=== PATIENT | female | born 1960 | race Caucasian/White ===

== ENCOUNTER → 2017-11-12 | Outpatient (CLI) | payer BC ==
[~2017-11-12] MED LIST: CETI10TA10 PO; CETICHW4 PO; CHOL100040 PO; CHOL1TAB42 PO; CYCL5TAB PO
--- NOTE | 2017-11-12 11:49 | DIAGNOSTIC IMAGING REPORT ---
THYROID ULTRASONOGRAPHY CLINICAL HISTORY: ENLARGED THYROID GLAND COMPARISON STUDY: March 2013 FINDINGS: The right of the thyroid measures 47 x 14 x 15 mm. Left lobe of thyroid measures 44 x 15 x 14 mm. Both lobes are heterogeneous in echotexture with tiny nodules. The dominant nodule in the right is a mid to lower pole circumscribed hypoechoic 4 x 3 x 4 mm nodule. The dominant nodule on the left is a circumscribed wider than tall hypoechoic 6 x 3 x 4 mm nodule. These nodules remain similar to the prior March 2013 study. IMPRESSION: Stable multinodular thyroid gland. No suspicious nodules are identified. Electronically signed by: Sharath De Los Santos M.D. 11/12/2017 11:48 AM Dictated Date/Time: 11/12/2017 11:45 AM
== END | disposition home or self-care (01) ==
LOC: C.ULTR 11:19
PROVIDERS: ATTEND Nurse Practitioner
DX: E04.9 Nontoxic goiter, unspecified (principal)

== ENCOUNTER → 2017-12-03 | Day surgery (SDC) | payer BC ==
[2017-11-20 13:04] VITALS: Ht 167.6 cm; Wt 51.8 kg
[~2017-12-03] VITALS: Ht 167.6 cm; Wt 51.8 kg
[~2017-12-03] MED LIST changes: -CETICHW4 PO; -CHOL100040 PO; -CYCL5TAB PO; +LIDOCAINE HCL 2% 2 ML VIAL (20MG/ML) ONE; +PROPOFOL IV EMULSION 10 MG/ML 20 ML VIAL IV ONE
--- NOTE | 2017-12-03 14:36 | Endo History and Physical ---
History & Physical Date of Service: Dec 03, 2017. Chief Complaint: History of polyps Referring Physician: Sona Avila History of Present Illness screening colon Past Surgical History Hx Cardiac Surgery: No Hx Internal Defibrillator: No Hx Pacemaker: No Hx Abdominal Surgery: Yes (HYSTERECTOMY) Hx of Implantable Prosthesis: No Hx Post-Op Nausea and Vomiting: No Hx Cancer Surgery: No Hx Thoracic Surgery: No Hx Orthopedic: Yes (RT/LEFT KNEE ARTHROSCOPY) Hx Urinary Tract Surgery: No Family History Polyp Social History Smoking Status: Current Every Day Smoker Hx Substance Use: No Hx Alcohol Use: Yes (OCCASIONALLY) Allergies Coded Allergies: Latex1 -Allergic Contact Dermititis (Verified Allergy, Mild, RASH, 11/20/17 ) Gold (Verified Allergy, Unknown, RASH, 11/20/17) Neomycin (Verified Adverse Reaction, Unknown, rash, 11/20/17) Uncoded Allergies: RUBBER (Allergy, Unknown, RASH, 11/20/17) Current Medications Reported Home Medications Medications Dose Route/Sig Max Daily Dose Days Date Category Vitamin D (Cholecalciferol) 5,000 Unit Tab 2 Tab PO QAM 11/20/17 Reported Zyrtec (Cetirizine Hcl) 10 Mg Tab 10 Mg PO QAM 11/20/17 Reported Vital Signs Weight (Kilograms): 51.82 Height (Feet): 5 Height (Inches): 6 Date Time Temp Pulse Resp B/P (MAP) Pulse Ox O2 Delivery O2 Flow Rate FiO2 12/03/17 13:58 37.3 78 16 141/83 (102) 99 Room Air Physical Exam General Appearance: WD/WN, no apparent distress Respiratory/Chest: Auscultation: breath sounds normal Cardiovascular: Heart Auscultation: RRR Abdomen: Bowel Sounds: normal Inspection & Palpation: soft, non-distended, no tenderness, guarding & rebound Assessment and Plan colon for screening
--- NOTE | 2017-12-03 15:36 | GI REPORT ---
Procedure Date: 12/03/2017 2:49 PM Procedure: Colonoscopy Indications: Personal history of colonic polyps Medicines: Propofol per Anesthesia Complications: No immediate complications. Estimated blood loss: Minimal. Estimated Blood Loss: Estimated blood loss was minimal. Procedure: Pre-Anesthesia Assessment: - Prior to the procedure, a History and Physical was performed, and patient medications and allergies were reviewed. The patient's tolerance of previous anesthesia was also reviewed. The risks and benefits of the procedure and the sedation options and risks were discussed with the patient. All questions were answered, and informed consent was obtained. Prior Anticoagulants: The patient has taken no previous anticoagulant or antiplatelet agents. ASA Grade Assessment: II - A patient with mild systemic disease. After reviewing the risks and benefits, the patient was deemed in satisfactory condition to undergo the procedure. After I obtained informed consent, the scope was passed under direct vision. Throughout the procedure, the patient's blood pressure, pulse, and oxygen saturations were monitored continuously. The scope was introduced through the anus and advanced to the cecum, identified by appendiceal orifice and ileocecal valve. The colonoscopy was performed without difficulty. The patient tolerated the procedure well. The quality of the bowel preparation was good. Findings: Two sessile polyps were found in the rectum. The polyps were 3 mm in size. These polyps were removed with a cold biopsy forceps. Resection and retrieval were complete. Estimated blood loss was minimal. Verification of patient identification for the specimen was done by the physician and orthopedic technician using the patient's name and medical record number. Two sessile polyps were found in the rectum. The polyps were 5 to 7 mm in size. These polyps were removed with a cold snare. Resection and retrieval were complete. Estimated blood loss was minimal. Verification of patient identification for the specimen was done by the physician and orthopedic technician using the patient's name and medical record number. A 7 mm polyp was found in the transverse colon. The polyp was sessile. The polyp was removed with a hot snare. Resection and retrieval were complete. Estimated blood loss was minimal. Verification of patient identification for the specimen was done by the physician and orthopedic technician using the patient's name and medical record number. The retroflexed view of the distal rectum and anal verge was normal and showed no anal or rectal abnormalities. The exam was otherwise without abnormality. Impression: - Two 3 mm polyps in the rectum, removed with a cold biopsy forceps. Resected and retrieved. - Two 5 to 7 mm polyps in the rectum, removed with a cold snare. Resected and retrieved. - One 7 mm polyp in the transverse colon, removed with a hot snare. Resected and retrieved. - The distal rectum and anal verge are normal on retroflexion view. - The examination was otherwise normal. Recommendation: - Discharge patient to home (ambulatory). - Resume regular diet. - Continue present medications. - Await pathology results. - Return to referring physician as previously scheduled. MD Walter Gonzáles MD 12/03/2017 3:36:07 PM This report has been signed electronically. Note Initiated On: 12/03/2017 2:49 PM I attest to the content of the Intraoperative Record and orders documented therein, exceptions below
--- NOTE | 2017-12-03 15:39 | Anesthesiology Progress Note ---
Anesthesia Post Op Note Date & Time Dec 03, 2017 at 15:39 Vital Signs Pain Intensity: 0 Vital Signs Past 12 Hours Date Time Temp Pulse Resp B/P (MAP) Pulse Ox O2 Delivery O2 Flow Rate FiO2 12/03/17 15:30 81 16 127/52 (77) 100 Room Air 12/03/17 13:58 37.3 78 16 141/83 (102) 99 Room Air Notes Mental Status: alert / awake / arousable, participated in evaluation Pt Amnestic to Procedure: Yes Nausea / Vomiting: adequately controlled Pain: adequately controlled Airway Patency, RR, SpO2: stable & adequate BP & HR: stable & adequate Hydration State: stable & adequate Anesthetic Complications: no major complications apparent
--- NOTE | 2017-12-03 15:43 | Discharge Instructions ---
Endoscopy Patient Instructions Date / Procedure(s) Performed Dec 03, 2017. Colonoscopy Allergy Information Coded Allergies: Latex1 -Allergic Contact Dermititis (Verified Allergy, Mild, RASH, 11/20/17 ) Gold (Verified Allergy, Unknown, RASH, 11/20/17) Neomycin (Verified Adverse Reaction, Unknown, rash, 11/20/17) Uncoded Allergies: RUBBER (Allergy, Unknown, RASH, 11/20/17) Discharge Date / Findings Dec 03, 2017. polyps Medication Instructions Restart Stopped Medication(s): Reported Home Medications Medications Dose Route/Sig Max Daily Dose Days Date Category Vitamin D (Cholecalciferol) 5,000 Unit Tab 2 Tab PO QAM 11/20/17 Reported Zyrtec (Cetirizine Hcl) 10 Mg Tab 10 Mg PO QAM 11/20/17 Reported Reported Home Medications Medications Dose Route/Sig Max Daily Dose Days Date Category Vitamin D (Cholecalciferol) 5,000 Unit Tab 2 Tab PO QAM 11/20/17 Reported Zyrtec (Cetirizine Hcl) 10 Mg Tab 10 Mg PO QAM 11/20/17 Reported Provider Instructions Activity Restrictions - No exercising or heavy lifting for 24 hours. - Do not drink alcohol the day of the procedure. - Do not drive a car or operate machinery until the day after the procedure. - Do not make any important decisions or sign important papers in 24 hours after the procedure. Following Day: - Return to full activity which may include returning to work/school. Diet Start your diet with liquids and light foods (jello, soup, juice, toast). Then eat your usual diet if not nauseated. Treatment For Common After Affects For mild abdominal pain, bloating, or excessive gas: - Rest - Eat lightly - Lie on right side Follow-Up Information Follow-up with Sona Avila as scheduled Anesthesia Information What You Should Know You have had a procedure that required some medicine to reduce anxiety and discomfort. This treatment is called moderate sedation. After receiving the treatment, you may be sleepy, but you will be able to breathe on your own. The effects of the treatment may last for several hours. Follow these instructions along with Activity/Diet recommendations noted above: * Do NOT do anything where dizziness or clumsiness would be dangerous. * Rest quietly at home today, then you can be up and about tomorrow. * Have a responsible person stay with you the rest of today. * You may have had an I.V. today. If so, you may take the dressing off later today. Recommendations Call your doctor if: * Trouble breathing * Continuous vomiting for more than 24 hours * Temperature above 101 degrees * Severe abdominal pain or bloating * Pain not relieved by pain medicine ordered * There is increased drainage or redness from any incision * A large amount of rectal bleeding greater than 2-3 tablespoons. (If you had a polyp/s removed or have hemorrhoids, a small amount of blood - from the rectum is to be expected.) * You have any unanswered questions or concerns. IN THE EVENT OF A SERIOUS EMERGENCY, GO TO THE NEAREST EMERGENCY ROOM Your discharge instructions were prepared by provider Walter Prescott. Patient Instructions Signature Page Arlette Hobbs Patient (or Guardian) Signature/Date: I have read and understand the instructions given to me by my caregivers. Caregiver/RN/Doctor Signature/Date: The above-named patient and/or guardian has received patient instructions on this date. + Original Patient Signature Page (only) stays with chart. Please make copy for patient.
[2017-12-03 15:45] VITALS: BP 128/78; PULSE 62; O2SAT 100
== END | disposition home or self-care (01) ==
LOC: C.GI 13:32
PROVIDERS: ATTEND Internal Medicine Gastroenterology
DX: Z12.11 Encounter for screening for malignant neoplasm of colon (principal); Z86.010 Personal history of colon polyps; K62.1 Rectal polyp; D12.3 Benign neoplasm of transverse colon; Z90.710 Acquired absence of both cervix and uterus; F17.200 Nicotine dependence, unspecified, uncomplicated; Z83.71 Family history of colonic polyps; Z91.040 Latex allergy status; Z88.1 Allergy status to other antibiotic agents

== ENCOUNTER → 2017-12-04 | Outpatient (CLI) | payer BC ==
[~2017-12-04] MED LIST changes: -LIDOCAINE HCL 2% 2 ML VIAL (20MG/ML) ONE; -PROPOFOL IV EMULSION 10 MG/ML 20 ML VIAL IV ONE
--- NOTE | 2017-12-07 07:45 | MAMMOGRAPHY REPORT ---
BILATERAL DIGITAL SCREENING MAMMOGRAM TOMOSYNTHESIS WITH CAD: 12/04/2017 CLINICAL HISTORY: Routine screening. Patient has no complaints. TECHNIQUE: Breast tomosynthesis in addition to standard 2D mammography was performed. Current study was also evaluated with a Computer Aided Detection (CAD) system. COMPARISON: Comparison is made to exams dated: 03/04/2013 mammogram, 02/27/2012 mammogram, 03/15/2010 ma mmogram, 03/08/2010 mammogram - [facility], 03/02/2009, and 02/18/2008. BREAST COMPOSITION: The tissue of both breasts is heterogeneously dense, which may obscure small mas ses. FINDINGS: No suspicious masses, calcifications, or areas of architectural distortion are noted in ei ther breast. There has been no significant interval change compared to prior exams. IMPRESSION: ACR BI-RADS CATEGORY 1: NEGATIVE There is no mammographic evidence of malignancy. A 1 year screening mammogram is recommended. The pa tient will receive written notification of the results. Approximately 10% of breast cancers are not detected with mammography. A negative mammographic report should not delay biopsy if a clinically suggestive mass is present. Dee Dee Samson M.D. /:12/04/2017 17:03:33 Aircraft Maintenance Engineer: Lazara BRUCE(Vahe)(M), [facility] letter sent: Normal 1/2 BI-RADS Code: ACR BI-RADS Category 1: Negative
== END | disposition home or self-care (01) ==
LOC: C.MAMM 15:07
PROVIDERS: ATTEND Nurse Practitioner
DX: Z12.31 Encounter for screening mammogram for malignant neoplasm of breast (principal)

== ENCOUNTER → 2017-12-04 | Outpatient (CLI) | payer BC ==
--- NOTE | 2017-12-04 16:01 | DIAGNOSTIC IMAGING REPORT ---
NECK ULTRASOUND HISTORY: Right neck lump. ENLARGED/TENDER R NODE COMPARISON: Thyroid ultrasound 11/12/2017. Neck CT 06/10/2013. FINDINGS: Real-time sonographic imaging of the right neck was performed with insurance claims representative images submitted. Within the right neck there is a 1.8 x 1.0 x 0.6 cm hypoechoic nodule. This corresponds to the patient's area of interest. This is similar in size to the prior neck CT. No fluid collections identified. IMPRESSION: There is a 1.8 x 1.0 x 0.6 cm hypoechoic nodule within the right neck. This favors a lymph node and is similar to a prior neck CT. If this is increasing in size, fine-needle aspiration could be performed for further evaluation. Therefore, clinical follow-up is recommended. Electronically signed by: Clyde Adler M.D. 12/04/2017 3:59 PM Dictated Date/Time: 12/04/2017 3:52 PM
== END | disposition home or self-care (01) ==
LOC: C.ULTR 15:35
PROVIDERS: ATTEND Nurse Practitioner
DX: R59.0 Localized enlarged lymph nodes (principal)